=== PATIENT | female | born 2000 | race Caucasian/White ===

== ENCOUNTER 2018-06-09 09:24 | Inpatient (IN) | payer MEDICAID, OTHER ==
--- NOTE | 2018-06-09 12:15 | Ultrasound Report ---
ULTRASOUND BIOPHYSICAL PROFILE: History: well being Technique: Transabdominal ultrasound with Doppler interrogation. 0 - breathing movements 2 - movements 2 - posture and tone 2 - Qualitative amniotic fluid volume 6 - TOTAL SCORE OF POSSIBLE 8 Heart Rate (bpm) 145
--- NOTE | 2018-06-09 12:15 | Ultrasound Report ---
ULTRASOUND OB LIMITED History: well being Technique: Transabdominal ultrasound with Doppler interrogation. Gestation: Single Position: Cephalic Amniotic Fluid: Normal CARISSA = 9.8 cm Heart Rate: 130 BPM
[2018-06-09 14:18] LABS: Hematocrit 38.9 % (30.3-42.9); Mean Corpuscular HGB Conc 33 % (30-34); Mean Corpuscular Volume 88 fl (79-97); Platelet Count 264 K/mm3 (140-440); Red Blood Count 4.43 M/mm3 (3.65-5.03); Red Cell Distribution Width 15.1 % (13.2-15.2)
[2018-06-09] MEDS ORDERED: STADOL IV PRN (14:38)
[2018-06-09] MEDS ORDERED: MINERAL OIL PO PRN (14:38)
[2018-06-09] MEDS ORDERED: BRETHINE IVP PRN (14:38)
[2018-06-09] MEDS ORDERED: SUBLIMAZE IV PRN (14:38)
[2018-06-09] MEDS ORDERED: XYLOCAINE 2% INFILTRATI ONE (14:38)
[2018-06-09] MEDS ORDERED: BRETHINE SUB-Q PRN (14:38)
[2018-06-09] MEDS ORDERED: LACTATED RINGERS 1,000 ML IV SCH (15:00)
[2018-06-09] MEDS ORDERED: PITOCin/NS 30 UNIT/500ML 30 UNITS/500 ML BAG IV SCH (15:00)
[2018-06-09] MEDS ORDERED: PITOCin/NS 20 UNIT/1000ML DRIP 20 UNITS/1,000 ML BAG IV SCH (15:00)
--- NOTE | 2018-06-09 15:07 | History and Physical Report ---
History of Present Illness Date of examination: 06/09/18 Date of admission: 06/09/18 Chief complaint: Contractions, decreased FM History of present illness: 17yo G 2 P 0 0 1 0 at 40 weeks 3 days here with c/o contractions and decreased FM. She denies VB. NST reactive. BPP 6/8, CARISSA 9.8cm. Consulted Dr. Cedeño and she recommended IOL. She is a [facility] patient who initiated care at 19 weeks. Her course has been unremarkable. Labs: O pos, Antibody Screen neg, RI, VDRL neg, Urine Culture neg, HB sAg neg, HIV neg, GC/CT negMSAFP/MULTIPLE MARKERS neg, Diabetes Screen 105, CF neg, HSV1 pos, HSV2 neg, GBS neg. Past History Past Medical History: no pertinent history Past Surgical History: no surgical history Family/Genetic History: none Social history: single, lives with family, full code. denies: smoking, alcohol abuse, prescription drug abuse, IV drug use - Obstetrical History Expected Date of Delivery: 06/06/18 Actual Gestation: 40 Week(s) 3 Day(s) : 2 Para: 2 Hx # Term Pregnancies: 0 Number of Pregnancies: 0 Spontaneous Abortions: 1 Induced : 0 Number of Living Children: 0 Medications and Allergies Allergies Allergy/AdvReac Type Severity Reaction Status Date / Time No Known Allergies Allergy Verified 06/09/18 09:55 Home Medications Medication Instructions Recorded Confirmed Last Taken Type No Known Home Medications [No 06/09/18 06/09/18 Unknown History Reported Home Medications] Review of Systems All systems: negative - Vital Signs Vital signs: Vital Signs Temp Pulse Resp BP Pulse Ox 97.7 F 111 H 18 116/72 97 06/09/18 09:47 06/09/18 09:47 06/09/18 09:47 06/09/18 09:47 06/09/18 09:47 Temp Pulse Resp BP Pulse Ox 98.6 F 75 18 97/56 98 06/09/18 13:45 06/09/18 13:34 06/09/18 13:45 06/09/18 12:39 06/09/18 13:34 - Obstetrical FHR: auscultation normal, category 1 FHR comments: FHR 140, moderate variability, 15x15 accels, no decels Uterine Contraction Monitor Mode: External Cervical Dilatation: 1.5 (per RN) Cervical Effacement Percentage: 50 (per RN) station: -2 (per RN) Uterine Contraction Frequency (min): 2-9 Uterine Contraction Pattern: Irregular Results Result Diagrams: 06/09/18 13:49 Abnormal lab results 06/09/18 Range/Units 13:49 WBC 12.6 H (4.5-11.0) K/mm3 All other labs normal. Assessment and Plan - Patient Problems (1) 40 weeks gestation of Current Visit: Yes Status: Acute (2) Abnormal test Current Visit: Yes Status: Acute (3) Encounter for induction of labor Current Visit: Yes Status: Acute Plan to address problem: Admit to L&D with routine labor orders Start low-dose Oxytocin for cervical ripening Anticipate vaginal delivery
[2018-06-09] MEDS ORDERED: VALTREX PO SCH (22:00)
--- NOTE | 2018-06-10 00:38 | Anesthesia Consultation ---
Anesthesia Consult and Med Hx Date of service: 06/10/18 - Airway Anesthetic Teeth Evaluation: Good ROM Head & Neck: Adequate Mental/Hyoid Distance: Adequate Mallampati Class: Class II Intubation Access Assessment: Probably Good - Pulmonary Exam CTA: Yes - Cardiac Exam Cardiac Exam: RRR - Pre-Operative Health Status ASA Pre-Surgery Classification: ASA2 Proposed Anesthetic Plan: Epidural - Pulmonary Hx Asthma: No - Cardiovascular System Hx Hypertension: No - Central Nervous System Hx Seizures: No Hx Psychiatric Problems: No - Endocrine Hx Renal Disease: No Hx Hypothyroidism: No Hx Hyperthyroidism: No - Hematic Hx Anemia: No Hx Sickle Cell Disease: No - Other Systems Hx Alcohol Use: No
[2018-06-10] MEDS ORDERED: NARCAN 2 MG/2 ML IV PRN (00:39)
[2018-06-10] MEDS ORDERED: NUBAIN IV PRN (00:39)
--- NOTE | 2018-06-10 02:07 | Progress Note ---
Subjective Date of service: 06/10/18 Principal diagnosis: labor Interval history: CSE placement: TO performed, L3-4 space identified and prep and drape. 01:15 CSE and cath placed with neg test dose. 1:25 cath dressed and bolused with 5 cc of .25% marcaine. Pt contractions decreased. VS after 97/52, hr 103, resp 22. SAO2-99% Objective - Constitutional Vitals: Vital Signs - 12hr 06/09/18 06/09/18 06/09/18 16:11 17:50 19:28 Pulse Rate 75 96 H 84 Blood Pressure 117/68 126/70 119/69 O2 Sat by Pulse Oximetry 06/09/18 06/10/18 06/10/18 23:38 01:12 01:14 Pulse Rate 68 96 H 105 H Blood Pressure 106/60 112/69 103/76 O2 Sat by Pulse 98 Oximetry 06/10/18 06/10/18 06/10/18 01:16 01:18 01:19 Pulse Rate 100 H 87 88 Blood Pressure 111/67 111/62 O2 Sat by Pulse 97 Oximetry 06/10/18 06/10/18 06/10/18 01:20 01:24 01:27 Pulse Rate 88 59 L 104 H Blood Pressure 109/60 97/52 O2 Sat by Pulse 98 Oximetry 06/10/18 06/10/18 06/10/18 01:29 01:30 01:32 Pulse Rate 102 H 81 86 Blood Pressure 112/56 106/56 O2 Sat by Pulse 98 Oximetry 06/10/18 06/10/18 06/10/18 01:34 01:35 01:38 Pulse Rate 91 H 94 H 60 Blood Pressure 71/37 107/55 O2 Sat by Pulse 98 Oximetry 06/10/18 06/10/18 06/10/18 01:39 01:40 01:42 Pulse Rate 91 H 86 84 Blood Pressure 91/54 99/57 O2 Sat by Pulse 99 Oximetry 06/10/18 06/10/18 06/10/18 01:44 01:49 01:54 Pulse Rate 71 92 H 72 Blood Pressure 115/63 O2 Sat by Pulse 99 99 100 Oximetry 06/10/18 06/10/18 01:59 02:01 Pulse Rate 80 93 H Blood Pressure 101/53 O2 Sat by Pulse 100 Oximetry - Labs CBC & Chem 7: 06/09/18 13:49 Labs: Abnormal lab results 06/09/18 Range/Units 13:49 WBC 12.6 H (4.5-11.0) K/mm3
[2018-06-10] MEDS: fentaNYL-BUPIV 2 MCG/ML-0.125% 200 MCG/100 ML BAG EPIDURAL SCH ×2 (02:16→10:30)
--- NOTE | 2018-06-10 04:40 | Event Note ---
Date: 06/10/18 At last SVE cervix 5-6/95/-1. SROM with clear fluid. Reassuring heart rate tracing.
--- NOTE | 2018-06-10 06:36 | Event Note ---
Date: 06/10/18 SVE /-1.
[2018-06-10] MEDS ORDERED: LANSINOH TP PRN (13:07)
[2018-06-10] MEDS ORDERED: TUCKS PAD TP PRN (13:07)
[2018-06-10] MEDS ORDERED: DULCOLAX PR PRN (13:07)
[2018-06-10] MEDS ORDERED: PHENERGAN PO PRN (13:07)
[2018-06-10] MEDS ORDERED: MILK OF MAGNESIA PO PRN (13:07)
[2018-06-10] MEDS ORDERED: BENADRYL PO PRN (13:07)
[2018-06-10] MEDS ORDERED: NORCO 5/325 PO PRN (13:07)
--- NOTE | 2018-06-10 13:18 | Procedure Note ---
OB Delivery Note - Delivery Date of Delivery: 06/10/18 Surgeon: SANA VENEGAS Maxillofacial Pathology: ZORA SAMS Estimated blood loss: other (350 cc) - Vaginal Delivery presentation: vertex Delivery position: OA Intrapartum events: other(please specify) (deep variable FHR decelerations prior to delivery) Delivery augmentation: pitocin Delivery monitor: external FHT, external uterine Route of delivery: Indicators for instrumentation: nonreassuring FHR tracing Delivery placenta: spontaneous Delivery cord: 3 umbilical vessels Episiotomy: midline Delivery repair: vicryl Anesthesia: epidural Delivery comments: Called Dr. Venegas to assist delivery with Kiwi vacuum due to deep variable FHR decelerations noted just prior to delivery. Dr. Venegas came and applied Kiwi vacuum and delivered liveborn male baby at 11:25 over MLE weighing 6 lb. 15 oz. with apgars of 5/7. Baby placed immediately on maternal chest after delivery. Delayed cord clamping; spontaneous cry and respirations. 3 vessel cord double clamped after brief delay; NICU team present to evaluate baby due to decels and VAVD. Spontaneous delivery of intact placenta and membranes at 11:31. EBL 350 cc. Pitocin added to IV fluids after delivery of placenta. Fundus firm and midline. 2nd degree midline episiotomy repaired with 2-0 vicryl. Vaginal sweep performed 3 times and negative times 3. No other lacerations noted. Sponge count missing 2 sponges; did not have time to count sponges prior to delivery due to need to expedite delivery. Patient declined x-ray to check for sponges. Baby was taken to NICU for further evaluation. Patient stable in birthing room.
[2018-06-10] MEDS ORDERED: SODIUM CHLORIDE FLUSH SYRINGE 10 ML IV NR (14:00)
[2018-06-10] MEDS ORDERED: AMMONIA INHALANT IH ONE (14:00)
[2018-06-10] MEDS: IBUPROFEN PO SCH ×2 (14:00→20:00)
[2018-06-11 01:41] LABS: Hematocrit 22.5 % (30.3-42.9); Hemoglobin 7.4 gm/dl (10.1-14.3)
[2018-06-11] MEDS: COLACE PO SCH ×3 (02:11→21:16)
[2018-06-11] MEDS: IBUPROFEN PO SCH ×5 (02:12→20:02)
[2018-06-11] MEDS ORDERED: DERMOPLAST TP PRN (09:47)
--- NOTE | 2018-06-11 09:53 | Progress Note ---
Assessment and Plan A: day 1 S/P VAVD. Anemia. P: Iron supplementation TID. Stool softeners. Iron rich foods discussed with patient. Subjective - Subjective Date of service: 06/11/18 Principal diagnosis: day 1 Interval history: day 1 S/P VAVD. Doing well. Baby is in NICU but doing well per patient report. Patient is anemic; iron supplementation ordered. Patient reports small amount of lochia. She is voiding without difficulty. Ambulating well. Tolerating a regular diet without nausea or vomiting. Patient denies dizziness, nausea, chest pain, shortness of breath, abdominal pain, leg pain. Patient reports: appetite normal, voiding normally, pain well controlled, flatus, ambulating normally, no dizzy ambulation, no nauseated [place]: doing well Objective - Vital Signs Latest vital signs: Vital Signs Temp Pulse Resp BP BP Pulse Ox 06/11/18 08:00 98.7 F 76 18 99/74 06/11/18 06:42 16 06/11/18 05:42 20 06/11/18 02:12 20 06/10/18 18:08 98.0 F 97 H 20 106/50 97 06/10/18 14:16 97.8 F 79 18 104/67 100 06/10/18 13:58 107 H 104/59 06/10/18 13:57 104 H 97 06/10/18 13:52 101 H 111/55 99 06/10/18 13:46 109 H 102/59 06/10/18 13:39 107 H 105/62 06/10/18 13:31 137 H 94/50 06/10/18 13:16 141 H 98/55 06/10/18 13:01 98.1 F 122 H 18 107/57 06/10/18 12:46 114 H 104/57 06/10/18 12:31 112 H 101/58 06/10/18 12:16 105 H 107/63 06/10/18 12:01 98.4 F 117 H 18 98/51 06/10/18 12:00 107 H 108/59 06/10/18 11:45 137 H 108/53 06/10/18 11:31 125 H 119/59 06/10/18 11:26 103 H 68 L 06/10/18 11:21 120 H 99 06/10/18 11:16 120 H 98 06/10/18 11:15 86 128/64 06/10/18 11:11 86 99 06/10/18 11:06 91 H 100 06/10/18 11:01 113 H 100 06/10/18 11:00 80 123/66 06/10/18 10:56 108 H 100 06/10/18 10:51 89 100 06/10/18 10:46 94 H 121/65 99 06/10/18 10:41 89 100 06/10/18 10:36 92 H 100 06/10/18 10:31 87 99 06/10/18 10:30 89 122/67 06/10/18 10:26 106 H 99 06/10/18 10:21 93 H 99 06/10/18 10:16 87 121/58 99 06/10/18 10:11 79 99 06/10/18 10:06 109 H 99 06/10/18 10:01 118 H 99 06/10/18 09:58 90 99/56 87 06/10/18 09:56 82 100 06/10/18 09:51 81 100 Intake and Output 06/10/18 06/11/18 06/11/18 23:59 07:59 15:59 Intake Total 300 Output Total 400 Balance -400 300 Intake: Intake, Free Water 300 Output: Urine 400 Indwelling Catheter 400 Other: Total, Output Amount 400 - Exam Cardiovascular: Present: Regular rate, Normal S1, Normal S2 Lungs: Present: Clear to auscultation Abdomen: Present: normal appearance, soft, normal bowel sounds. Absent: distention, tenderness, guarding, rigidity Uterus: Present: normal, firm, fundal height below umbilicus. Absent: bogginess, tenderness Extremities: Present: normal. Absent: tenderness, edema - Labs Labs: Abnormal lab results 06/11/18 Range/Units 01:07 Hgb 7.4 L D (10.1-14.3) gm/dl Hct 22.5 L D (30.3-42.9) %
[2018-06-11] MEDS: FEOSOL PO SCH ×2 (10:48→20:02)
[2018-06-12 07:34] LABS: Hematocrit 22.8 % (30.3-42.9); Hemoglobin 7.4 gm/dl (10.1-14.3)
[2018-06-12] MEDS: FEOSOL PO SCH ×2 (07:44→14:59)
[2018-06-12] MEDS: COLACE PO SCH (10:12)
[2018-06-12] MEDS: IBUPROFEN PO SCH (10:13)
--- NOTE | 2018-06-12 12:50 | Progress Note ---
Assessment and Plan - Patient Problems (1) Status post vacuum-assisted vaginal delivery Current Visit: Yes Status: Acute Plan to address problem: PPD 2 - stable Continue routine orders Anticipate discharge in 24 hours (2) Anemia in puerperium, baby delivered during current episode of care Current Visit: Yes Status: Acute Plan to address problem: Asymptomatic Continue iron therapy Repeat H&H on 06/13/18 Subjective - Subjective Date of service: 06/12/18 Principal diagnosis: PPD #2; s/p VAVD Interval history: 17yo G 2 P 0 0 1 0 at 40 weeks 3 days here with c/o contractions and decreased FM. She denies VB. NST reactive. BPP 6/8, CARISSA 9.8cm. Consulted Dr. Cedeño and she recommended IOL. She is a [facility] patient who initiated care at 19 weeks. Her course has been unremarkable. Labs: O pos, Antibody Screen neg, RI, VDRL neg, Urine Culture neg, HB sAg neg, HIV neg, GC/CT negMSAFP/MULTIPLE MARKERS neg, Diabetes Screen 105, CF neg, HSV1 pos, HSV2 neg, GBS neg. Patient reports: appetite normal, voiding normally, pain well controlled, ambulating normally, no dizzy ambulation, no bowel movement [place]: in NICU Objective - Vital Signs Latest vital signs: Vital Signs Temp Pulse Resp BP BP Pulse Ox 06/12/18 08:31 99.2 F 76 16 110/70 99 06/12/18 00:00 98.4 F 92 H 20 108/57 06/11/18 18:48 97.5 F L 85 18 104/52 Intake and Output 06/11/18 06/12/18 06/12/18 23:59 07:59 15:59 Intake Total 240 200 Balance 240 200 Intake: Oral 240 200 Other: Total, Intake Amount 120 200 # Voids Void 1 - Exam Abdomen: Present: normal appearance, soft Vulva: both: laceration/episiotomy (episiotomy well approximated and healing well) Uterus: Present: normal, firm, fundal height below umbilicus Extremities: Present: normal Comments: small lochia - Labs Labs: Abnormal lab results 06/12/18 Range/Units 07:15 Hgb 7.4 L (10.1-14.3) gm/dl Hct 22.8 L (30.3-42.9) %
--- NOTE | 2018-06-12 13:58 | Discharge Summary ---
Providers - Providers Date of Admission: 06/09/18 15:47 Date of discharge: 06/12/18 Attending physician: THALIA SPEAR MD Primary care physician: [facility] Hospital[facility] Reason for admission: induction of labor (secondary to abnormal test), IUP at term Delivery: vacuum extraction Episiotomy: midline Laceration: 2nd degree complications: none Discharge diagnosis: IUP at term delivered baby: male Hospital course: Uncomplicated Condition at discharge: Stable Disposition: MT-01 TO HOME OR SELFCARE - Discharge Diagnoses (1) Status post vacuum-assisted vaginal delivery Status: Acute (2) Anemia in puerperium, baby delivered during current episode of care Status: Acute Comment: Asymptomatic Continue iron therapy Plan - Discharge Medications Prescriptions: Ferrous Sulfate [Feosol 325 MG tab] 325 mg PO TID #90 tablet - Provider Discharge Summary Activity: routine, no sex for 6 weeks, no heavy lifting 4 weeks, no strenuous exercise Diet: routine Instructions: routine Additional instructions: [] Smoking cessation referral if applicable(refer to patient education folder for contact #) [] Refer to [facility]'s [facility] Center Booklet Call your doctor immediately for: * Fever > 100.5 * Heavy vaginal bleeding ( >1 pad per hour) * Severe persistent headache * Shortness of breath * Reddened, hot, painful area to leg or breast * Drainage or odor from incision. * Keep incision clean and dry at all times and follow doctor's instructions regarding bathing/showering - Follow up plan Follow up: PRIMARY CARE, [Primary Care Provider] - 6 Weeks (Follow up at [facility] in 6 weeks for exam)
[2018-06-12 19:02] VITALS: BP 110/66
== END 2018-06-12 19:15 | disposition home or self-care (01) | DRG 806 ==
LOC: TRG 09:24 → LD 15:47 → OB 06-10 14:34
PROVIDERS: ADMIT Obstetrics & Gynecology; ATTEND Obstetrics & Gynecology
PROC: 3E0P7VZ Introduction of Hormone into Female Reproductive, Via Natural or Artificial Opening (ICD-10-PCS; 2018-06-09)
PROC: 10D07Z6 Extraction of Products of Conception, Vacuum, Via Natural or Artificial Opening (ICD-10-PCS; principal; 2018-06-10)
PROC: 0KQM0ZZ Repair Perineum Muscle, Open Approach (ICD-10-PCS; 2018-06-10)
PROC: 0W8NXZZ Division of Female Perineum, External Approach (ICD-10-PCS; 2018-06-10)
PROC: 0KQM0ZZ Repair Perineum Muscle, Open Approach (ICD-10-PCS; 2018-06-10)
PROC: 3E0R3BZ Introduction of Anesthetic Agent into Spinal Canal, Percutaneous Approach (ICD-10-PCS; 2018-06-10)
PROC: 00HU33Z Insertion of Infusion Device into Spinal Canal, Percutaneous Approach (ICD-10-PCS; 2018-06-10)
DX: O76 Abnormality in fetal heart rate and rhythm complicating labor and delivery (principal); D62 Acute posthemorrhagic anemia; O99.02 Anemia complicating childbirth; O70.1 Second degree perineal laceration during delivery; Z37.0 Single live birth; Z3A.40 40 weeks gestation of pregnancy
CPT/HCPCS: 36415; 76815; 76819; 85014; 85018; 85027; 86592; 86850; 86900; 86901; G0378; J2590; J3010; J3105; J7120